=== PATIENT | male | born 1980 | race African-American/Black ===

== ENCOUNTER 2024-12-14 17:31 | Inpatient (IN) | payer OTHER ==
[~2024-12-14] VITALS: Ht 177.8 cm; Wt 99.2 kg
[2024-12-14 19:12] LABS: PLATELET COUNT (AUTO) 201 K/uL (150-450); RED BLOOD CELL COUNT(AUTO) 3.35 MIL/uL (4.50-5.90); RED CELL DISTRIBUTION WIDTH 15.4 % (11.5-14.5); WHITE BLOOD COUNT (AUTO) 5.9 K/uL (4.5-11.0)
[2024-12-14 19:14] LABS: CALCIUM, TOTAL 8.4 mg/dL (8.8-10.5); CREATININE 0.86 mg/dL (0.60-1.30); GLOMERULAR FILTR. RATE CALC > 60 mL/min (>60); GLUCOSE,RANDOM 80 mg/dL (70-110); SODIUM SERUM 137 mmol/L (136-145); UREA NITROGEN, BLOOD 23 mg/dL (7-18)
[2024-12-14 19:15] LABS: APPEARANCE,URINE CLEAR (CLEAR); GLUCOSE, URINE (UA) NEGATIVE (NEGATIVE); LEUKOCYTE ESTERASE ,URINE NEGATIVE (NEGATIVE); NITRATE,URINE NEGATIVE (NEGATIVE); OCCULT BLOOD,URINE NEGATIVE (NEGATIVE); PH,URINE DRUG SCREEN 6.5 (5.0-8.0); SPECIFIC GRAVITIY, URINE 1.025 (1.003-1.030)
[2024-12-14 19:20] LABS: ASPARTATE AMINOTRANSFERASE 33.0 U/L (15-37); CREATINE KINASE, TOTAL ONLY 447.0 U/L (39-308); TOTAL PROTEIN, SERUM 7.0 g/dL (6.4-8.2)
[2024-12-14 19:24] LABS: TROPONIN I-HIGH SENSITIVITY 11 ng/L (<76)
[2024-12-14 19:25] LABS: ALCOHOL, URINE DRUG SCREEN NEGATIVE (NEGATIVE); AMPHET/METH SCREEN,URINE NEGATIVE (NEGATIVE); BARBITURATE SCREEN, URINE NEGATIVE (NEGATIVE); CANNABINOID SCREEN,URINE NEGATIVE (NEGATIVE); COCAINE SCREEN,URINE NEGATIVE (NEGATIVE); METHADONE SCREEN, URINE NEGATIVE (NEGATIVE)
[2024-12-14] MEDS: FUROSEMIDE 20 MG/2 ML VIAL IVP ONE (19:30)
[2024-12-14] MEDS ORDERED: ONDANSETRON HCL 4 MG/2 ML VIAL IVP PRN (20:00)
[2024-12-14] MEDS: DOCUSATE SODIUM 100 MG CAPSULE PO SCH (21:00)
[2024-12-14 21:44] VITALS: BP 126/89; PULSE 79; RESP 20; TEMP 98.1; O2SAT 100
[2024-12-14 23:42] LABS: TROPONIN I-HIGH SENSITIVITY 11 ng/L (<76)
[2024-12-15] MEDS: HEPARIN SODIUM,PORCINE 5,000 UNITS/ML VIAL SQ SCH (00:05)
[2024-12-15 00:21] VITALS: BP 98/53; PULSE 70; RESP 19; TEMP 98.2; O2SAT 97
[2024-12-15] MEDS: RINGERS SOLUTION,LACTATED 500 ML IV ONE (01:21)
[2024-12-15] MEDS: AZITHROMYCIN 500 MG/NS 250 ML IV SCH (01:21)
[2024-12-15 04:02] VITALS: BP 108/55; PULSE 66; RESP 19; TEMP 98.1; O2SAT 97
[2024-12-15 07:07] LABS: PLATELET COUNT (AUTO) 198 K/uL (150-450); RED BLOOD CELL COUNT(AUTO) 3.01 MIL/uL (4.50-5.90); RED CELL DISTRIBUTION WIDTH 14.9 % (11.5-14.5); WHITE BLOOD COUNT (AUTO) 5.6 K/uL (4.5-11.0)
[2024-12-15 07:08] LABS: CALCIUM, TOTAL 7.9 mg/dL (8.8-10.5); CREATININE 0.83 mg/dL (0.60-1.30); GLOMERULAR FILTR. RATE CALC > 60 mL/min (>60); GLUCOSE,RANDOM 98 mg/dL (70-110); SODIUM SERUM 141 mmol/L (136-145); UREA NITROGEN, BLOOD 21 mg/dL (7-18)
[2024-12-15 07:29] LABS: CREATINE KINASE, TOTAL ONLY 324.0 U/L (39-308)
[2024-12-15 07:37] LABS: TROPONIN I-HIGH SENSITIVITY 11 ng/L (<76)
[2024-12-15 09:06] VITALS: BP 102/58; PULSE 64; RESP 17; TEMP 98.1; O2SAT 99
[2024-12-15] MEDS: CefTRIAXone 1 GM/DEXTROSE 50 ML IV SCH (10:24)
[2024-12-15] MEDS: LACTULOSE 20 GM/30 ML SOLUTION UDCUP PO SCH (10:28)
[2024-12-15] MEDS: ACETAMINOPHEN 325 MG TABLET PO PRN (11:52)
[2024-12-15 12:38] VITALS: BP 99/74; PULSE 69; RESP 19; TEMP 97.5; O2SAT 98
[2024-12-15] MEDS: METOCLOPRAMIDE HCL 5 MG/ML 2 ML VIAL IVP SCH (14:45)
[2024-12-15] MEDS: MECLIZINE HCL 25 MG TABLET PO PRN (15:15)
[2024-12-15 16:26] VITALS: BP 110/71; PULSE 63; RESP 17; TEMP 97.7; O2SAT 98
[2024-12-15 19:20] VITALS: BP 100/65; PULSE 68; RESP 19; TEMP 98.2; O2SAT 99
[2024-12-15 19:35] LABS: TROPONIN I-HIGH SENSITIVITY 12 ng/L (<76)
[2024-12-16 00:50] VITALS: BP 104/50; PULSE 67; RESP 19; TEMP 98.1; O2SAT 98
[2024-12-16 04:03] VITALS: BP 94/67; PULSE 58; RESP 18; TEMP 98.1; O2SAT 97
[2024-12-16 06:59] LABS: PLATELET COUNT (AUTO) 218 K/uL (150-450); RED BLOOD CELL COUNT(AUTO) 3.23 MIL/uL (4.50-5.90); RED CELL DISTRIBUTION WIDTH 15.2 % (11.5-14.5); WHITE BLOOD COUNT (AUTO) 6.0 K/uL (4.5-11.0)
[2024-12-16 07:11] LABS: CALCIUM, TOTAL 8.4 mg/dL (8.8-10.5); CREATININE 0.85 mg/dL (0.60-1.30); GLOMERULAR FILTR. RATE CALC > 60 mL/min (>60); GLUCOSE,RANDOM 102 mg/dL (70-110); SODIUM SERUM 140 mmol/L (136-145); UREA NITROGEN, BLOOD 22 mg/dL (7-18)
[2024-12-16 08:15] VITALS: BP 109/65; PULSE 55; RESP 18; TEMP 97.2; O2SAT 98
[2024-12-16 11:06] VITALS: BP 117/66; PULSE 65; RESP 18; TEMP 98.2; O2SAT 98
[2024-12-16] MEDS ORDERED: AZIT-164 PO (14:09)
[2024-12-16] MEDS ORDERED: LACT10SO85 PO (14:13)
[2024-12-16] MEDS ORDERED: CEFD300C18 PO (14:14)
[2024-12-16 16:06] VITALS: BP 118/65; PULSE 60; RESP 19; TEMP 98.1; O2SAT 96
[2024-12-16 19:12] VITALS: BP 118/70; PULSE 69; RESP 19; TEMP 98.1; O2SAT 100
[2024-12-17 00:26] VITALS: BP 118/66; PULSE 70; RESP 18; TEMP 98.2; O2SAT 98
[2024-12-17 04:41] VITALS: BP 118/79; PULSE 59; RESP 18; TEMP 98.1; O2SAT 97
[2024-12-17 07:36] VITALS: BP 99/62; PULSE 55; RESP 18; TEMP 98.4; O2SAT 100
[2024-12-17 11:20] VITALS: BP 122/90; PULSE 61; RESP 19; TEMP 98.2; O2SAT 98
[2024-12-17] MEDS: BENZTROPINE MESYLATE 0.5 MG TABLET PO SCH (12:19)
[2024-12-17 15:23] VITALS: BP 118/73; PULSE 66; RESP 18; TEMP 98.8; O2SAT 99
[2024-12-17 20:01] VITALS: BP 118/78; PULSE 66; RESP 18; TEMP 98.2; O2SAT 97
[2024-12-18 00:06] VITALS: BP 115/70; PULSE 51; RESP 17; TEMP 98.2; O2SAT 99
[2024-12-18 03:56] VITALS: BP 111/76; PULSE 68; RESP 18; TEMP 98.4; O2SAT 98
[2024-12-18 07:33] VITALS: BP 121/70; PULSE 55; RESP 18; TEMP 98.2; O2SAT 98
[2024-12-18 11:10] VITALS: BP 113/71; PULSE 60; RESP 19; TEMP 98.2; O2SAT 97
[2024-12-18 15:04] VITALS: BP 122/70; PULSE 61; RESP 18; TEMP 98.1; O2SAT 98
[2024-12-19 00:43] VITALS: BP 108/67; PULSE 52; RESP 18; TEMP 98.1; O2SAT 99
[2024-12-19 04:23] VITALS: BP 107/62; PULSE 60; RESP 16; TEMP 97.9; O2SAT 100
[2024-12-19 07:37] VITALS: BP 116/82; PULSE 54; RESP 18; TEMP 98.5; O2SAT 98
[2024-12-19] MEDS: BuPROPion HCL XL 150 MG ER TABLET PO SCH (08:46)
[2024-12-19 11:19] VITALS: BP 109/73; PULSE 64; RESP 18; TEMP 98.4; O2SAT 99
== END 2024-12-19 15:40 | DRG 557 ==
LOC: EMS 17:31 → EDH 19:46 → 5S 21:40
PROVIDERS: ADMIT Internal Medicine; ATTEND Internal Medicine
DX: M62.82 Rhabdomyolysis (principal); J18.9 Pneumonia, unspecified organism; I11.0 Hypertensive heart disease with heart failure; I50.9 Heart failure, unspecified; R41.89 Other symptoms and signs involving cognitive functions and awareness; E11.9 Type 2 diabetes mellitus without complications; K76.82 Hepatic encephalopathy; K74.60 Unspecified cirrhosis of liver; F19.10 Other psychoactive substance abuse, uncomplicated; Z88.0 Allergy status to penicillin
CPT/HCPCS: 71045; 80048; 80076; 80307; 81003; 82140; 82550; 83735; 83880; 84484; 85025; 85610; 85730; 93005; 93306; 93970; 96374; 97116; 97162; 97166; 99285; G0378; J0456; J0696; J1644; J1938; J2765; J7120; 36415-L1; 36415-TC